=== PATIENT | female | born 2000 | race Caucasian/White ===

== ENCOUNTER → 2022-09-30 | Emergency (ER) | payer BC, OTHER ==
[~2022-09-30] VITALS: Ht 160 cm; Wt 44.5 kg
[~2022-09-30] MED LIST: AMOX-430 PO
[2022-09-30 19:10] VITALS: BP 107/65; TEMP 98.2
--- NOTE | 2022-09-30 21:00 | NUR ---
COVID AND STREP SWAB DONE AND SENT TO LAB
--- NOTE | 2022-09-30 21:07 | NUR ---
Patient discharged to home in stable condition. Written and verbal after care instructions given. Patient verbalizes understanding of instruction.
== END | disposition home or self-care (01) ==
LOC: ER 19:04
DX: J06.9 Acute upper respiratory infection, unspecified (principal); R07.0 Pain in throat; Z60.2 Problems related to living alone; Z79.899 Other long term (current) drug therapy; Z20.822 Contact with and (suspected) exposure to COVID-19
CPT/HCPCS: 99283; 87426; 87880; C9803; 86403-TC